=== PATIENT | female | born 1975 | race Caucasian/White ===

== ENCOUNTER → 2024-11-04 | Outpatient (CLI) | payer OTHER ==
[2024-11-04 13:20] LABS: Stool Occult Bld Immuno 1 Negative (NEGATIVE)
== END | disposition home or self-care (01) ==
LOC: LAB 08:45 → LAB SHORT 08:45
PROVIDERS: Family Medicine
DX: Z12.11 Encounter for screening for malignant neoplasm of colon (principal); R19.5 Other fecal abnormalities
CPT/HCPCS: 87015; 87045; 87046; 87205; 87899; G0328